=== PATIENT | female | born 1965 | race Caucasian/White ===

== ENCOUNTER 2020-03-01 11:10 | Inpatient (IN) | payer MEDICAID ==
[~2020-03-01] VITALS: Ht 149.9 cm; Wt 79.5 kg
[~2020-03-01 11:10] MED LIST: ALBU18HF2 IH; BAC10T PO; BACL10TA PO; CALC-3 PO; DIAZ5TAB PO; DIVA125T31 PO; LORA-512 PO; NORCO10T PO; NYST15OI14 TP; OMEP20CA4 PO; ONDA4TAB59 PO; ONDA4TAB6 PO
[2020-03-01] MEDS ORDERED: normal saline 1000ML IV soln IVB ONE (11:50)
[2020-03-01 12:27] LABS: BASOPHILS # (AUTO) 0.1 X10'3 (0-0.2); BASOPHILS % (AUTO) 0.7 % (0-1); HEMOGLOBIN 17.2 g/dl (12.0-16.0); MEAN PLATELET VOLUME 8.1 FL (7.4-10.4); NEUTROPHILS # (AUTO) 10.3 X10'3 (1.8-7.7)
[2020-03-01 12:28] LABS: EOSINOPHILS % (AUTO) 0.4 % (0-6); HEMATOCRIT 49.2 % (35.0-45.0); LYMPHOCYTES # (AUTO) 1.7 X10'3 (1.1-4.8); LYMPHOCYTES % (AUTO) 13.5 % (21-51); MEAN CORPUSCULAR HEMOGLOBIN 32.1 PG (27.0-31.0); MEAN CORPUSCULAR VOLUME 91.8 FL (78-98); MONOCYTES # (AUTO) 0.3 X10'3 (0-0.9); MONOCYTES % (AUTO) 2.6 % (2-12); NEUTROPHILS % (AUTO) 82.8 % (42-75); PLATELET COUNT 323 X10'3 (140-440); RED BLOOD COUNT 5.36 X10'6 (4.20-5.60); RED CELL DISTRIBUTION WIDTH 12.9 % (11.5-14.5); WHITE BLOOD COUNT 12.4 X10'3 (4.5-11.0)
[2020-03-01] MEDS: morphine 4 MG/ML inj SYRINge IV PRN ×4 (12:31→21:31)
[2020-03-01] MEDS ORDERED: ondansetron/PF 4mg/2ml inj IV ONE (12:40)
[2020-03-01 12:41] LABS: ALANINE AMINOTRANSFERASE 24 U/L (12-78); ALBUMIN 4.1 G/DL (3.4-5.0); ALBUMIN/GLOBULIN RATIO 0.9 (1.1-1.5); ALKALINE PHOSPHATASE 78 IU/L (46-116); ANION GAP 12 (8-16); ASPARTATE AMINO TRANSFERASE 12 U/L (10-37); BILIRUBIN,TOTAL 0.5 MG/DL (0.1-1.0); BLOOD UREA NITROGEN 10 MG/DL (7-18); BUN/CREATININE RATIO 10.8 (6.6-38.0); CALCIUM 9.9 MG/DL (8.5-10.1); CHLORIDE 98 MMOL/L (99-107); CREATININE 0.93 MG/DL (0.40-0.90); GLUCOSE 189 MG/DL (70-104); LIPASE 64 U/L (73-393); POTASSIUM 3.4 MMOL/L (3.5-5.1); SODIUM 139 MMOL/L (135-145); TOTAL CARBON DIOXIDE 29.1 MMOL/L (24-32); TOTAL PROTEIN 8.5 G/DL (6.4-8.2); eGFR 63 ML/MIN
[2020-03-01] MEDS ORDERED: cefepime 1GM/NS ADD-VANTAGE 100 ML IV STA (12:51)
[2020-03-01] MEDS ORDERED: dextrose 50%-water 50ml dispensing syringe IV PRN ×2 (13:20)
[2020-03-01] MEDS ORDERED: glucagon, human recombinant 1mg kit SUBCUT PRN (13:20)
[2020-03-01] MEDS ORDERED: albuterol 2.5 MG/3 ML nebule NEB PRN (13:20)
[2020-03-01] MEDS ORDERED: acetaminophen 650mg rectal suppository RC PRN (13:20)
[2020-03-01] MEDS ORDERED: magnesium 4gm in 100ml NS 100 ML IV PRN (13:20)
[2020-03-01] MEDS ORDERED: potassium Cl 20 mEq SR tablet PO PRN (13:20)
[2020-03-01] MEDS ORDERED: dextrose ORAL solution 15 GM/59 ML bottle PO PRN ×2 (13:20)
[2020-03-01] MEDS ORDERED: ipratropium/albuterol 3ml nebule NEB PRN (13:20)
[2020-03-01] MEDS ORDERED: MESSAGE TO PHARMACY PO ONE (13:20)
[2020-03-01] MEDS ORDERED: magnesium 2GM in 50ml NS 50 ML IV PRN (13:20)
[2020-03-01] MEDS ORDERED: potassium Cl 40MEQ/1/2NS 520ml 520 ML IV PRN ×2 (13:20)
[2020-03-01] MEDS ORDERED: mag hydrox/Alum hydrox/simeth 30ml oral suspension PO PRN (13:20)
[2020-03-01] MEDS ORDERED: METF-436 PO (13:31)
[2020-03-01] MEDS ORDERED: NYSPWD TOP (13:31)
[2020-03-01] MEDS ORDERED: DIAZ2TAB3 PO (13:31)
[2020-03-01] MEDS ORDERED: ASPI-1397 PO (13:31)
[2020-03-01] MEDS ORDERED: DIVA-36 PO (13:31)
[2020-03-01] MEDS ORDERED: DEXL30CA3 PO (13:31)
[2020-03-01] MEDS ORDERED: HYDR25TA4 PO (13:31)
[2020-03-01] MEDS ORDERED: HYDR-3973 PO (13:31)
[2020-03-01] MEDS ORDERED: BACL10TA7 PO (13:31)
[2020-03-01] MEDS ORDERED: POTA10TA19 PO (13:31)
[2020-03-01] MEDS ORDERED: BUPR-286 PO (13:32)
[2020-03-01] MEDS ORDERED: MYC15CR TOP (13:32)
[2020-03-01] MEDS ORDERED: ALB0.5UD NEB (13:32)
[2020-03-01] MEDS ORDERED: LORA10TA7 PO (13:32)
[2020-03-01 14:00] LABS: HEMOGLOBIN A1C 6.2 % (4.5-6.2)
[2020-03-01 14:11] LABS: CLARITY,URINE CLEAR (Clear); COLOR,URINE YELLOW (Yellow); GLUCOSE, URINE NEGATIVE (Neg); KETONES,URINE 15 mg/dl (Neg); LEUKOCYTE ESTERASE ,URINE NEGATIVE (Neg); NITRITES, URINE NEGATIVE (Neg); OCCULT BLOOD,URINE NEGATIVE (Neg); PH,URINE 8.5 (4.8-8.0); PROTEIN,URINE NEGATIVE (Neg); UROBILINOGEN,URINE 0.2 E.U/dL (0.2-1.0)
[2020-03-01] MEDS: normal saline 1000ml 1,000 ML IV SCH ×2 (14:19→23:20)
[2020-03-01 14:24] LABS: UA COLLECTION TYPE CLN CATCH MIDSTREAM
[2020-03-01] MEDS ORDERED: morphine 4 MG/ML inj SYRINge IV PRN ×2 (15:15→23:30)
--- NOTE | 2020-03-01 16:02 | NUR ---
Patient in room ED 12. I have received report fromKevin KEARNEY and had the opportunity to ask questions and awaiting patient
--- NOTE | 2020-03-01 16:36 | NUR ---
Patient in room [facility]. I have received PATIENT from er and had the opportunity to ask questions and assume patient care.
[2020-03-01] MEDS: cefepime 1GM/NS ADD-VANTAGE 100 ML IV SCH (16:42)
[2020-03-01 16:47] VITALS: BP 134/70
--- NOTE | 2020-03-01 17:05 | NUR ---
patient uncomfortable connected up to low interm suction 200mls cedeño colored drainage observed.VSS.
[2020-03-01] MEDS: morphine 2 MG/ML inj. syringe IV PRN (17:16)
--- NOTE | 2020-03-01 18:23 | NUR ---
patient appears more comfortable following MS 2mg and connecting NG, continues to drain cedeño coloured fluid. Report given to Maritza KEARNEY
--- NOTE | 2020-03-01 18:47 | NUR ---
Patient in room [facility]. I have received report from Narda KEARNEY and had the opportunity to ask questions and assume patient care.
[2020-03-01 19:37] VITALS: BP 112/87
[2020-03-01 19:46] VITALS: BP 112/87
[2020-03-01 19:48] LABS: PARTIAL THROMBOPLASTIN TIME 23 SECONDS (22-32)
[2020-03-01 20:00] VITALS: BP 112/87
[2020-03-01] MEDS: K and/or MAG REPLACEMENT MC SCH (20:00)
[2020-03-01] MEDS: enoxaparin 40mg/0.4ml syringe SQ SCH (20:00)
--- NOTE | 2020-03-01 20:00 | NUR ---
Problems reprioritized. Patient report given, questions answered & plan of care reviewed with Rodriguez KEARNEY in recovery for transfer to surgery.
[2020-03-01] MEDS: insulin glargine (Lantus) pen - multi-dose SQ SCH (20:23)
[2020-03-01] MEDS ORDERED: clindamycin phosphate 150mg/ml inj. ONE (21:08)
[2020-03-01] MEDS ORDERED: gentamicin 40 MG/1 ML inj ONE (21:08)
--- NOTE | 2020-03-01 21:15 | NUR ---
Pt left for surgery. checklist completed.
[2020-03-01] MEDS ORDERED: sevoflurane 250ml liquid IH ONE (22:17)
[2020-03-01] MEDS ORDERED: LIDOcaine 1%/PF 5ML 10 MG/ML VIAL ONE (22:17)
[2020-03-01] MEDS ORDERED: neostigmine methylsulfate 1 MG/ML 10ml vial ONE (22:17)
[2020-03-01] MEDS ORDERED: dexamethasone sod phosphate 10mg/ml inj ONE (22:17)
[2020-03-01] MEDS ORDERED: midazolam 2 mg/2 ml injection ONE (22:29)
[2020-03-01] MEDS ORDERED: fentaNYL /PF 50mcg/ml 5ml ampule ONE (22:29)
[2020-03-01] MEDS ORDERED: propofol inj 20 ML IV ONE (22:36)
[2020-03-01] MEDS ORDERED: rocuronium 10mg/ml inj IV ONE (22:36)
[2020-03-01] MEDS ORDERED: ondansetron/PF 4mg/2ml inj ONE (22:56)
[2020-03-01] MEDS ORDERED: meperidine/PF 25mg/ml syringe IV PRN ×3 (23:30)
[2020-03-01] MEDS ORDERED: ondansetron/PF 4mg/2ml inj IV PRN (23:30)
[2020-03-01] MEDS ORDERED: ringers solution, lacted 1,000 ML IV SCH (23:30)
[2020-03-01] MEDS ORDERED: morphine 2 MG/ML inj. syringe IV PRN (23:30)
[2020-03-01] MEDS ORDERED: acetaminophen 1,000mg/100ml IV 100 ML IV ONE (23:54)
[2020-03-02] VITALS (16 sets, daily range): BP systolic 112–158; BP diastolic 69–99
--- NOTE | 2020-03-02 00:08 | NUR ---
Received from OR via , accompanied by Anesthesiologist DR VELASCO and report given by Anesthesiolgist. AWAKENS TO VOICE. VITALS STABLE. DRESSING DI. ANTHONY PAIN. NG TO LIS. COTE WITH CLEAR URINE. ABD SOFT.
[2020-03-02] MEDS ORDERED: LIDOcaine 2% 10ml TOPICAL JELLY (Urojet) TP ONE (00:35)
--- NOTE | 2020-03-02 00:58 | NUR ---
Report called to receiving nurse. Transferred via [facility] . Special Issues communicated to receiving nurse.AWAKE AND ORIENTED. VITALS STABLE. DRESSING DI. STATES ONLY MIN DISCOMFORT. TO SURGICAL RM 344B AT TIS TIME.
[2020-03-02] MEDS: cefepime 1GM/NS ADD-VANTAGE 100 ML IV SCH ×4 (01:19→23:48)
[2020-03-02] MEDS: normal saline 1000ml 1,000 ML IV SCH ×3 (01:23→23:48)
[2020-03-02] MEDS: insulin Lispro (HumaLOG) vial - multi-dose SQ SCH ×3 (02:17→15:00)
[2020-03-02] MEDS: morphine 2 MG/ML inj. syringe IV PRN ×2 (02:25→07:07)
[2020-03-02 06:19] LABS: BASOPHILS % (AUTO) 0 % (0-1); EOSINOPHILS % (AUTO) 0 % (0-6); HEMATOCRIT 43.4 % (35.0-45.0); LYMPHOCYTES # (AUTO) 0.7 X10'3 (1.1-4.8); LYMPHOCYTES % (AUTO) 4.7 % (21-51); MEAN CORPUSCULAR HEMOGLOBIN 31.6 PG (27.0-31.0); MEAN CORPUSCULAR HGB CONC 34.5 g/dL (33.0-36.5); MEAN CORPUSCULAR VOLUME 91.8 FL (78-98); MEAN PLATELET VOLUME 8.5 FL (7.4-10.4); MONOCYTES % (AUTO) 6.9 % (2-12); NEUTROPHILS # (AUTO) 12.5 X10'3 (1.8-7.7); NEUTROPHILS % (AUTO) 88.4 % (42-75); PLATELET COUNT 283 X10'3 (140-440); RED BLOOD COUNT 4.73 X10'6 (4.20-5.60); RED CELL DISTRIBUTION WIDTH 13.3 % (11.5-14.5); WHITE BLOOD COUNT 14.1 X10'3 (4.5-11.0)
--- NOTE | 2020-03-02 06:21 | NUR ---
Problems reprioritized. Patient report given, questions answered & plan of care reviewed with Narda KEARNEY.
--- NOTE | 2020-03-02 06:28 | NUR ---
Patient in room [facility]. I have received report from tristen KEARNEY and had the opportunity to ask questions and assume patient care.
[2020-03-02 06:41] LABS: ALANINE AMINOTRANSFERASE 52 U/L (12-78); ALBUMIN/GLOBULIN RATIO 0.9 (1.1-1.5); ALKALINE PHOSPHATASE 60 IU/L (46-116); ANION GAP 11 (8-16); ASPARTATE AMINO TRANSFERASE 26 U/L (10-37); BILIRUBIN,TOTAL 0.5 MG/DL (0.1-1.0); BLOOD UREA NITROGEN 11 MG/DL (7-18); BUN/CREATININE RATIO 12.8 (6.6-38.0); CHLORIDE 108 MMOL/L (99-107); CREATININE 0.86 MG/DL (0.40-0.90); GLUCOSE 195 MG/DL (70-104); MAGNESIUM 1.3 MG/DL (1.5-2.4); POTASSIUM 3.5 MMOL/L (3.5-5.1); SODIUM 143 MMOL/L (135-145); TOTAL CARBON DIOXIDE 24.4 MMOL/L (24-32); TOTAL PROTEIN 6.5 G/DL (6.4-8.2); eGFR 69 ML/MIN
[2020-03-02] MEDS: K and/or MAG REPLACEMENT MC SCH ×2 (08:00→19:48)
--- NOTE | 2020-03-02 10:37 | NUR ---
patient very painful 10/10 givn morphine but not working dr foy paged for review.
[2020-03-02] MEDS ORDERED: CADD PCA waste documentation MC PRN (10:45)
[2020-03-02] MEDS ORDERED: naloxone 0.4 mg/ml inj IV PRN (10:45)
--- NOTE | 2020-03-02 10:50 | NUR ---
DR ahmadi paged with regards patients pain. CAdd ordered . dressing to be reinforced prn
--- NOTE | 2020-03-02 11:30 | NUR ---
Per Dr Lee ok to keep salazar catheter in place today. Re-evaluate tomorrow
[2020-03-02] MEDS: morphine/NS 5 mg/ml CADD 50 ML IV SCH ×7 (12:23→22:37)
--- NOTE | 2020-03-02 13:15 | NUR ---
PATIENT APPEARS MORE COMFORTABLE FOLLOWING CADD ADMINISTRATION.
--- NOTE | 2020-03-02 16:37 | NUR ---
NG draining cedeño colored drainage low cont suction. 200mls observed
--- NOTE | 2020-03-02 18:11 | NUR ---
DR foy paged with regards patients home meds
--- NOTE | 2020-03-02 18:12 | NUR ---
Problems reprioritized. Patient report given, questions answered & plan of care reviewed with paula KEARNEY.
--- NOTE | 2020-03-02 18:30 | NUR ---
Patient in room [facility]. I have received report from CAIO Laboy and had the opportunity to ask questions and assume patient care. Addendum: 03/02/20 at 1902 by Semaj Ash RN Amended: Links added.
[2020-03-02] MEDS: lactobacillus rhamnosus 10,000 MMU CELLS/CAPSULE PO SCH (19:49)
[2020-03-02] MEDS: enoxaparin 40mg/0.4ml syringe SQ SCH (19:52)
[2020-03-02] MEDS: insulin glargine (Lantus) pen - multi-dose SQ SCH (21:00)
[2020-03-03] MEDS: morphine/NS 5 mg/ml CADD 50 ML IV SCH ×12 (01:00→23:00)
--- NOTE | 2020-03-03 02:00 | NUR ---
Asked patient when next appointment with doctor who follows her for diabetes, she says it's early March does not remember exact date but thinks within a month.
--- NOTE | 2020-03-03 06:33 | NUR ---
Problems reprioritized. Patient report given, questions answered & plan of care reviewed with clifford BENSON. Addendum: 03/03/20 at 0633 by Semaj Ash RN Amended: Links added.
--- NOTE | 2020-03-03 06:36 | NUR ---
Patient in room [facility]. I have received report from CAIO Brown and had the opportunity to ask questions and assume patient care.
[2020-03-03 07:00] VITALS: BP 111/66
[2020-03-03] MEDS: K and/or MAG REPLACEMENT MC SCH ×2 (07:10→19:38)
[2020-03-03] MEDS: lactobacillus rhamnosus 10,000 MMU CELLS/CAPSULE PO SCH ×2 (07:13→19:42)
[2020-03-03] MEDS: cefepime 1GM/NS ADD-VANTAGE 100 ML IV SCH ×2 (07:26→15:48)
[2020-03-03 07:53] LABS: BASOPHILS % (AUTO) 0.3 % (0-1); EOSINOPHILS # (AUTO) 0.1 X10'3 (0-0.9); EOSINOPHILS % (AUTO) 1.6 % (0-6); HEMATOCRIT 36.2 % (35.0-45.0); HEMOGLOBIN 12.5 g/dl (12.0-16.0); LYMPHOCYTES # (AUTO) 1.6 X10'3 (1.1-4.8); LYMPHOCYTES % (AUTO) 29.7 % (21-51); MEAN CORPUSCULAR HEMOGLOBIN 32.1 PG (27.0-31.0); MEAN CORPUSCULAR HGB CONC 34.6 g/dL (33.0-36.5); MEAN CORPUSCULAR VOLUME 92.6 FL (78-98); MEAN PLATELET VOLUME 8.6 FL (7.4-10.4); MONOCYTES # (AUTO) 0.6 X10'3 (0-0.9); MONOCYTES % (AUTO) 11.5 % (2-12); NEUTROPHILS # (AUTO) 3.1 X10'3 (1.8-7.7); NEUTROPHILS % (AUTO) 56.9 % (42-75); PLATELET COUNT 224 X10'3 (140-440); RED BLOOD COUNT 3.91 X10'6 (4.20-5.60); RED CELL DISTRIBUTION WIDTH 13.2 % (11.5-14.5); WHITE BLOOD COUNT 5.5 X10'3 (4.5-11.0)
[2020-03-03 08:21] LABS: ALANINE AMINOTRANSFERASE 27 U/L (12-78); ALBUMIN 2.5 G/DL (3.4-5.0); ALBUMIN/GLOBULIN RATIO 0.7 (1.1-1.5); ALKALINE PHOSPHATASE 46 IU/L (46-116); ANION GAP 10 (8-16); ASPARTATE AMINO TRANSFERASE 15 U/L (10-37); BILIRUBIN,TOTAL 0.5 MG/DL (0.1-1.0); BLOOD UREA NITROGEN 12 MG/DL (7-18); BUN/CREATININE RATIO 17.6 (6.6-38.0); CALCIUM 7.9 MG/DL (8.5-10.1); CHLORIDE 108 MMOL/L (99-107); CREATININE 0.68 MG/DL (0.40-0.90); GLUCOSE 161 MG/DL (70-104); MAGNESIUM 2.8 MG/DL (1.5-2.4); POTASSIUM 3.5 MMOL/L (3.5-5.1); SODIUM 144 MMOL/L (135-145); TOTAL CARBON DIOXIDE 26.3 MMOL/L (24-32); TOTAL PROTEIN 6.2 G/DL (6.4-8.2); eGFR > 90 ML/MIN
[2020-03-03] MEDS: insulin Lispro (HumaLOG) vial - multi-dose SQ SCH ×3 (09:21→20:54)
--- NOTE | 2020-03-03 10:21 | NUR ---
Dr Lee rounded on pt and stated pt to have NGT dc'd and start PO popsicles and ice chips. CAIO Marie aware.
[2020-03-03 11:00] VITALS: BP 117/69
[2020-03-03] MEDS: normal saline 1000ml 1,000 ML IV SCH (13:53)
[2020-03-03 18:00] VITALS: BP 146/77
--- NOTE | 2020-03-03 18:31 | NUR ---
Patient in room [facility]. I have received report from KELLEY KEARNEY and had the opportunity to ask questions and assume patient care.
--- NOTE | 2020-03-03 18:44 | NUR ---
Problems reprioritized. Patient report given, questions answered & plan of care reviewed with CAIO Starks.
[2020-03-03] MEDS: ondansetron/PF 4mg/2ml inj IV PRN (18:50)
[2020-03-03] MEDS: enoxaparin 40mg/0.4ml syringe SQ SCH (19:43)
[2020-03-03] MEDS: insulin glargine (Lantus) pen - multi-dose SQ SCH (21:00)
[2020-03-03] MEDS ORDERED: metoclopramide 5 mg/ml inj IV PRN (22:20)
[2020-03-03] MEDS: LORazepam 0.5 MG tablet PO PRN (22:44)
[2020-03-04] VITALS: BP 145/86
[2020-03-04] MEDS: cefepime 1GM/NS ADD-VANTAGE 100 ML IV SCH ×4 (00:18→23:36)
[2020-03-04] MEDS: normal saline 1000ml 1,000 ML IV SCH ×3 (00:25→22:17)
[2020-03-04] MEDS: morphine/NS 5 mg/ml CADD 50 ML IV SCH ×12 (01:00→23:00)
--- NOTE | 2020-03-04 06:05 | NUR ---
Patient in room [facility]. I have received report from CAIO Starks and had the opportunity to ask questions and assume patient care.
[2020-03-04 06:30] VITALS: BP 124/73
--- NOTE | 2020-03-04 06:32 | NUR ---
Problems reprioritized. Patient report given, questions answered & plan of care reviewed with ANTHONY RN.
[2020-03-04 06:43] LABS: BASOPHILS % (AUTO) 0.1 % (0-1); EOSINOPHILS # (AUTO) 0.1 X10'3 (0-0.9); EOSINOPHILS % (AUTO) 3.6 % (0-6); HEMATOCRIT 31.8 % (35.0-45.0); HEMOGLOBIN 11.2 g/dl (12.0-16.0); LYMPHOCYTES # (AUTO) 1.8 X10'3 (1.1-4.8); MEAN CORPUSCULAR HEMOGLOBIN 32.6 PG (27.0-31.0); MEAN CORPUSCULAR HGB CONC 35.1 g/dL (33.0-36.5); MEAN CORPUSCULAR VOLUME 92.9 FL (78-98); MEAN PLATELET VOLUME 8.3 FL (7.4-10.4); MONOCYTES # (AUTO) 0.5 X10'3 (0-0.9); MONOCYTES % (AUTO) 13.3 % (2-12); NEUTROPHILS # (AUTO) 1.5 X10'3 (1.8-7.7); PLATELET COUNT 191 X10'3 (140-440); RED BLOOD COUNT 3.43 X10'6 (4.20-5.60); RED CELL DISTRIBUTION WIDTH 13.2 % (11.5-14.5); WHITE BLOOD COUNT 3.9 X10'3 (4.5-11.0)
[2020-03-04 07:14] LABS: ALANINE AMINOTRANSFERASE 21 U/L (12-78); ALBUMIN 2.3 G/DL (3.4-5.0); ALBUMIN/GLOBULIN RATIO 0.6 (1.1-1.5); ALKALINE PHOSPHATASE 43 IU/L (46-116); ANION GAP 9 (8-16); ASPARTATE AMINO TRANSFERASE 11 U/L (10-37); BILIRUBIN,TOTAL 0.4 MG/DL (0.1-1.0); BLOOD UREA NITROGEN 9 MG/DL (7-18); CALCIUM 7.8 MG/DL (8.5-10.1); CHLORIDE 109 MMOL/L (99-107); GLUCOSE 143 MG/DL (70-104); POTASSIUM 3.3 MMOL/L (3.5-5.1); SODIUM 145 MMOL/L (135-145); TOTAL CARBON DIOXIDE 26.6 MMOL/L (24-32); TOTAL PROTEIN 5.9 G/DL (6.4-8.2); eGFR > 90 ML/MIN
[2020-03-04] MEDS: K and/or MAG REPLACEMENT MC SCH ×2 (07:28→19:08)
[2020-03-04] MEDS: lactobacillus rhamnosus 10,000 MMU CELLS/CAPSULE PO SCH ×2 (08:24→20:02)
[2020-03-04] MEDS: magnesium hydroxide 30ml (MOM) UD suspension PO SCH ×2 (08:24→20:01)
[2020-03-04] MEDS: potassium Cl 20 mEq SR tablet PO PRN ×2 (08:24→12:21)
[2020-03-04] MEDS: insulin Lispro (HumaLOG) vial - multi-dose SQ SCH ×3 (08:38→20:11)
[2020-03-04 11:00] VITALS: BP 165/67
[2020-03-04] MEDS: LORazepam 0.5 MG tablet PO PRN ×2 (14:32→20:07)
[2020-03-04] MEDS ORDERED: potassium Cl 20 mEq SR tablet PO PRN (16:35)
[2020-03-04] MEDS ORDERED: magnesium 4gm in 100ml NS 100 ML IV PRN (16:35)
[2020-03-04] MEDS ORDERED: magnesium 2GM in 50ml NS 50 ML IV PRN (16:35)
[2020-03-04] MEDS ORDERED: magnesium Cl slow-release 64mg tablet PO PRN (16:35)
[2020-03-04] MEDS ORDERED: potassium Cl 40MEQ/1/2NS 520ml 520 ML IV PRN (16:35)
[2020-03-04 18:00] VITALS: BP 108/64
[2020-03-04] MEDS ORDERED: mag hydrox/Alum hydrox/simeth 30ml oral suspension PO PRN (18:10)
--- NOTE | 2020-03-04 18:10 | NUR ---
Problems reprioritized. Patient report given, questions answered & plan of care reviewed with CAIO Starks.
--- NOTE | 2020-03-04 18:45 | NUR ---
Patient in room [facility]. I have received report from ANTHONY KEARNEY and had the opportunity to ask questions and assume patient care.
[2020-03-04] MEDS ORDERED: enoxaparin 40mg/0.4ml syringe SUBCUT SCH (20:00)
[2020-03-04] MEDS: enoxaparin 40mg/0.4ml syringe SQ SCH (20:02)
[2020-03-04] MEDS: insulin glargine (Lantus) pen - multi-dose SQ SCH (21:00)
[2020-03-04] MEDS: ondansetron/PF 4mg/2ml inj IV PRN (22:17)
[2020-03-05] VITALS: BP 158/78
[2020-03-05] MEDS: morphine/NS 5 mg/ml CADD 50 ML IV SCH ×6 (01:00→11:00)
[2020-03-05] MEDS: LORazepam 0.5 MG tablet PO PRN ×2 (01:06→20:21)
[2020-03-05] MEDS: insulin Lispro (HumaLOG) vial - multi-dose SQ SCH ×2 (02:49→14:16)
--- NOTE | 2020-03-05 06:05 | NUR ---
Patient in room [facility]. I have received report from CAIO Starks and had the opportunity to ask questions and assume patient care.
--- NOTE | 2020-03-05 06:08 | NUR ---
Problems reprioritized. Patient report given, questions answered & plan of care reviewed with ANTHONY RN.
[2020-03-05 06:13] LABS: BASOPHILS % (AUTO) 0.2 % (0-1); EOSINOPHILS # (AUTO) 0.1 X10'3 (0-0.9); EOSINOPHILS % (AUTO) 1.5 % (0-6); HEMATOCRIT 33.7 % (35.0-45.0); HEMOGLOBIN 11.5 g/dl (12.0-16.0); LYMPHOCYTES # (AUTO) 1.7 X10'3 (1.1-4.8); LYMPHOCYTES % (AUTO) 29.2 % (21-51); MEAN CORPUSCULAR HEMOGLOBIN 31.5 PG (27.0-31.0); MEAN CORPUSCULAR HGB CONC 34.1 g/dL (33.0-36.5); MEAN CORPUSCULAR VOLUME 92.2 FL (78-98); MEAN PLATELET VOLUME 8.2 FL (7.4-10.4); MONOCYTES # (AUTO) 0.6 X10'3 (0-0.9); MONOCYTES % (AUTO) 11.2 % (2-12); NEUTROPHILS # (AUTO) 3.4 X10'3 (1.8-7.7); NEUTROPHILS % (AUTO) 57.9 % (42-75); PLATELET COUNT 253 X10'3 (140-440); RED BLOOD COUNT 3.65 X10'6 (4.20-5.60); RED CELL DISTRIBUTION WIDTH 12.8 % (11.5-14.5); WHITE BLOOD COUNT 5.8 X10'3 (4.5-11.0)
[2020-03-05 06:30] VITALS: BP 131/86
[2020-03-05 06:41] LABS: ALANINE AMINOTRANSFERASE 28 U/L (12-78); ALBUMIN 2.5 G/DL (3.4-5.0); ALBUMIN/GLOBULIN RATIO 0.7 (1.1-1.5); ALKALINE PHOSPHATASE 56 IU/L (46-116); ANION GAP 7 (8-16); ASPARTATE AMINO TRANSFERASE 21 U/L (10-37); BILIRUBIN,TOTAL 0.3 MG/DL (0.1-1.0); BLOOD UREA NITROGEN 12 MG/DL (7-18); BUN/CREATININE RATIO 17.9 (6.6-38.0); CALCIUM 8.2 MG/DL (8.5-10.1); CHLORIDE 111 MMOL/L (99-107); CREATININE 0.67 MG/DL (0.40-0.90); GLUCOSE 111 MG/DL (70-104); MAGNESIUM 2.1 MG/DL (1.5-2.4); POTASSIUM 3.5 MMOL/L (3.5-5.1); SODIUM 148 MMOL/L (135-145); TOTAL CARBON DIOXIDE 29.6 MMOL/L (24-32); TOTAL PROTEIN 6.3 G/DL (6.4-8.2); eGFR > 90 ML/MIN
[2020-03-05] MEDS: normal saline 1000ml 1,000 ML IV SCH ×2 (07:20→10:23)
[2020-03-05] MEDS: K and/or MAG REPLACEMENT MC SCH ×2 (08:00→20:00)
[2020-03-05] MEDS: magnesium hydroxide 30ml (MOM) UD suspension PO SCH ×2 (10:12→20:00)
[2020-03-05] MEDS: pantoprazole 40mg Tablet.DR PO SCH (10:22)
[2020-03-05] MEDS: cefepime 1GM/NS ADD-VANTAGE 100 ML IV SCH ×2 (10:22→16:33)
[2020-03-05] MEDS: lactobacillus rhamnosus 10,000 MMU CELLS/CAPSULE PO SCH ×2 (10:22→20:21)
[2020-03-05 11:00] VITALS: BP 141/78
[2020-03-05] MEDS: HYDROcodone/acetaminophen 10/325mg tab PO PRN ×2 (12:27→16:34)
[2020-03-05] MEDS: morphine 2 MG/ML inj. syringe IV PRN ×2 (14:30→20:21)
--- NOTE | 2020-03-05 18:20 | NUR ---
Problems reprioritized. Patient report given, questions answered & plan of care reviewed with CAIO Starks.
--- NOTE | 2020-03-05 18:22 | NUR ---
Patient in room [facility]. I have received report from ANTHONY KEARNEY and had the opportunity to ask questions and assume patient care.
[2020-03-05 19:00] VITALS: BP 130/70
[2020-03-05] MEDS: furosemide 20 MG/2 ML vial IV SCH (20:21)
[2020-03-05] MEDS: enoxaparin 40mg/0.4ml syringe SQ SCH (20:22)
[2020-03-05] MEDS: insulin glargine (Lantus) pen - multi-dose SQ SCH (21:35)
[2020-03-05] MEDS: diazepam 2mg tablet PO PRN (22:25)
[2020-03-06] VITALS: BP 137/78
[2020-03-06] MEDS: cefepime 1GM/NS ADD-VANTAGE 100 ML IV SCH ×3 (00:51→16:55)
[2020-03-06] MEDS: HYDROcodone/acetaminophen 10/325mg tab PO PRN ×4 (00:52→23:16)
[2020-03-06] MEDS: morphine 2 MG/ML inj. syringe IV PRN ×4 (02:34→21:03)
--- NOTE | 2020-03-06 06:15 | NUR ---
Patient in room [facility]. I have received report from CAIO Starks and had the opportunity to ask questions and assume patient care.
--- NOTE | 2020-03-06 06:17 | NUR ---
Problems reprioritized. Patient report given, questions answered & plan of care reviewed with ANTHONY RN.
[2020-03-06 06:30] VITALS: BP 138/77
[2020-03-06] MEDS ORDERED: magnesium hydroxide 30ml (MOM) UD suspension PO PRN (07:10)
[2020-03-06 07:14] LABS: BASOPHILS % (AUTO) 0.2 % (0-1); EOSINOPHILS # (AUTO) 0.2 X10'3 (0-0.9); EOSINOPHILS % (AUTO) 2.7 % (0-6); HEMATOCRIT 32.3 % (35.0-45.0); HEMOGLOBIN 11.3 g/dl (12.0-16.0); LYMPHOCYTES # (AUTO) 2.6 X10'3 (1.1-4.8); LYMPHOCYTES % (AUTO) 31.9 % (21-51); MEAN CORPUSCULAR HEMOGLOBIN 32.4 PG (27.0-31.0); MEAN CORPUSCULAR VOLUME 92.6 FL (78-98); MEAN PLATELET VOLUME 7.9 FL (7.4-10.4); MONOCYTES # (AUTO) 0.7 X10'3 (0-0.9); NEUTROPHILS # (AUTO) 4.6 X10'3 (1.8-7.7); NEUTROPHILS % (AUTO) 56.2 % (42-75); PLATELET COUNT 247 X10'3 (140-440); RED BLOOD COUNT 3.48 X10'6 (4.20-5.60); RED CELL DISTRIBUTION WIDTH 12.9 % (11.5-14.5); WHITE BLOOD COUNT 8.1 X10'3 (4.5-11.0)
[2020-03-06 07:27] LABS: ALANINE AMINOTRANSFERASE 26 U/L (12-78); ALBUMIN 2.3 G/DL (3.4-5.0); ALBUMIN/GLOBULIN RATIO 0.7 (1.1-1.5); ALKALINE PHOSPHATASE 59 IU/L (46-116); ANION GAP 9 (8-16); ASPARTATE AMINO TRANSFERASE 20 U/L (10-37); BILIRUBIN,TOTAL 0.4 MG/DL (0.1-1.0); BLOOD UREA NITROGEN 7 MG/DL (7-18); BUN/CREATININE RATIO 10.8 (6.6-38.0); CALCIUM 8.2 MG/DL (8.5-10.1); CHLORIDE 106 MMOL/L (99-107); CREATININE 0.65 MG/DL (0.40-0.90); GLUCOSE 111 MG/DL (70-104); MAGNESIUM 1.8 MG/DL (1.5-2.4); SODIUM 144 MMOL/L (135-145); TOTAL CARBON DIOXIDE 28.9 MMOL/L (24-32); TOTAL PROTEIN 5.7 G/DL (6.4-8.2); eGFR > 90 ML/MIN
[2020-03-06] MEDS: potassium Cl 20 mEq SR tablet PO PRN ×3 (08:25→16:56)
[2020-03-06] MEDS: lactobacillus rhamnosus 10,000 MMU CELLS/CAPSULE PO SCH ×2 (08:25→19:41)
[2020-03-06] MEDS: pantoprazole 40mg Tablet.DR PO SCH (08:25)
[2020-03-06] MEDS: furosemide 20 MG/2 ML vial IV SCH (08:25)
[2020-03-06] MEDS: buPROPion SR 150mg tablet PO SCH (08:25)
[2020-03-06] MEDS: HYDROchlorothiazide 25mg tablet PO SCH (08:25)
[2020-03-06] MEDS: baclofen 10mg tablet PO SCH ×3 (08:26→20:48)
[2020-03-06] MEDS: divalproex 250mg tablet, delayed-release PO SCH ×2 (08:26→19:42)
[2020-03-06] MEDS: aspirin 81mg tablet.DR PO SCH (08:26)
[2020-03-06] MEDS: K and/or MAG REPLACEMENT MC SCH ×2 (08:26→19:37)
[2020-03-06] MEDS: insulin Lispro (HumaLOG) vial - multi-dose SQ SCH ×3 (08:38→19:18)
[2020-03-06 11:00] VITALS: BP 121/71
--- NOTE | 2020-03-06 14:38 | NUR ---
Initial: Pt admit DX SBO and peritonitis s/p ex lap w/ lysis of adhesions and small bowel resection per EMR. Hx T2DM A1C less than 7 and advanced to carb controlled diet today from prior full liquids post-op. PO 75-100% avg full liquid meals w/ LBM 03/05. Noted abdomen pain w/ nausea today. Will monitor for additional protein/ONS needs pending further PO hx post-op. Rec: 1. continue carb controlled diet 2. monitor for ONS needs 3. routine bowel care 4. weekly wts Addendum: 03/06/20 at [address] Amended: Links added.
--- NOTE | 2020-03-06 18:20 | NUR ---
Problems reprioritized. Patient report given, questions answered & plan of care reviewed with CAIO Salas.
--- NOTE | 2020-03-06 18:46 | NUR ---
I have received report from Jennifer KEARNEY and had the opportunity to ask questions and assume patient care.
[2020-03-06] MEDS: enoxaparin 40mg/0.4ml syringe SQ SCH (19:43)
[2020-03-06 20:00] VITALS: BP 143/91
[2020-03-06] MEDS: insulin glargine (Lantus) pen - multi-dose SQ SCH (21:20)
[2020-03-07] VITALS: BP 119/69
[2020-03-07] MEDS: cefepime 1GM/NS ADD-VANTAGE 100 ML IV SCH ×4 (00:29→23:44)
[2020-03-07] MEDS: diazepam 2mg tablet PO PRN (00:29)
[2020-03-07] MEDS: morphine 2 MG/ML inj. syringe IV PRN ×4 (02:26→23:45)
[2020-03-07] MEDS: HYDROcodone/acetaminophen 10/325mg tab PO PRN ×4 (04:33→22:13)
--- NOTE | 2020-03-07 06:23 | NUR ---
Problems reprioritized. Patient report given, questions answered & plan of care reviewed with Maday KEARNEY.
[2020-03-07 06:59] LABS: MAGNESIUM 1.7 MG/DL (1.5-2.4); POTASSIUM 3.6 MMOL/L (3.5-5.1)
[2020-03-07 07:00] VITALS: BP 131/80
[2020-03-07] MEDS: K and/or MAG REPLACEMENT MC SCH ×2 (08:00→19:21)
[2020-03-07] MEDS: buPROPion SR 150mg tablet PO SCH (08:14)
[2020-03-07] MEDS: baclofen 10mg tablet PO SCH ×3 (08:14→22:12)
[2020-03-07] MEDS: divalproex 250mg tablet, delayed-release PO SCH ×2 (08:14→19:22)
[2020-03-07] MEDS: HYDROchlorothiazide 25mg tablet PO SCH (08:14)
[2020-03-07] MEDS: aspirin 81mg tablet.DR PO SCH (08:14)
[2020-03-07] MEDS: pantoprazole 40mg Tablet.DR PO SCH (08:14)
[2020-03-07] MEDS: lactobacillus rhamnosus 10,000 MMU CELLS/CAPSULE PO SCH ×2 (08:14→19:21)
[2020-03-07] MEDS: insulin Lispro (HumaLOG) vial - multi-dose SQ SCH ×2 (09:03→19:32)
[2020-03-07] MEDS ORDERED: LACT1CAP26 PO (11:00)
[2020-03-07 13:15] VITALS: BP 123/90
--- NOTE | 2020-03-07 15:43 | NUR ---
Patient stating that he does not want to be discharged now and would be willing to do what is necessary. Spoke with hospitalist who suggested I call [facility] and let him know. He said this patient is not a good candidate for surgery and nothing is changing. Will notify hospitalist and discharge patient to the [facility]. Addendum: 03/07/20 at 1624 by Maday Osorio RN please disregard this message. wrong patient.
--- NOTE | 2020-03-07 17:38 | NUR ---
Attempted to call Dr. Staples regarding dressing and incision packing, also pain medication before this patient discharges. No answer.
--- NOTE | 2020-03-07 18:25 | NUR ---
Problems reprioritized. Patient report given, questions answered & plan of care reviewed with CAIO Salas.
[2020-03-07] MEDS: enoxaparin 40mg/0.4ml syringe SQ SCH (19:23)
[2020-03-07 20:00] VITALS: BP 128/90
[2020-03-07] MEDS: insulin glargine (Lantus) pen - multi-dose SQ SCH (22:15)
--- NOTE | 2020-03-07 22:52 | NUR ---
I have received report from Maday KEARNEY and had the opportunity to ask questions and assume patient care.
[2020-03-08] VITALS: BP 124/90
[2020-03-08] MEDS: HYDROcodone/acetaminophen 10/325mg tab PO PRN ×2 (04:23→08:25)
--- NOTE | 2020-03-08 06:46 | NUR ---
Problems reprioritized. Patient report given, questions answered & plan of care reviewed with Narda KEARNEY.
[2020-03-08 07:00] VITALS: BP 107/67
[2020-03-08] MEDS: aspirin 81mg tablet.DR PO SCH (08:21)
[2020-03-08] MEDS: baclofen 10mg tablet PO SCH (08:21)
[2020-03-08] MEDS: HYDROchlorothiazide 25mg tablet PO SCH (08:22)
[2020-03-08] MEDS: lactobacillus rhamnosus 10,000 MMU CELLS/CAPSULE PO SCH (08:22)
[2020-03-08] MEDS: pantoprazole 40mg Tablet.DR PO SCH (08:22)
[2020-03-08] MEDS: buPROPion SR 150mg tablet PO SCH (08:22)
[2020-03-08] MEDS: divalproex 250mg tablet, delayed-release PO SCH (08:22)
[2020-03-08] MEDS: insulin Lispro (HumaLOG) vial - multi-dose SQ SCH (09:56)
[2020-03-08] MEDS ORDERED: HYDR-4383 PO (10:05)
--- NOTE | 2020-03-08 12:00 | NUR ---
PATIENT WAS PREPARED FOR dc IN PM OF 03/07/20. dISCHARGE INSTRUCTIONS REINFORCED WITH PATIENT.Wound slightly reddened around kaylee mid portion. cleaned and reinforced with steristrips. Dressing re-applied. Seen by Charge Nurse Brenda. patient is to follow up with DR Staples in office. All other DC instructions given to patient. patient DC home via private car with friend 1150hrs.In stable condition.
== END 2020-03-08 11:49 | disposition home or self-care (01) | DRG 224 ==
LOC: ER 11:10 → ED HOLD 13:19 → SUR 3N 16:26
PROVIDERS: ADMIT Family Medicine; ATTEND Family Medicine
PROC: 0DN80ZZ Release Small Intestine, Open Approach (ICD-10-PCS; principal; 2020-03-01 22:17)
DX: K56.50 Intestinal adhesions [bands], unspecified as to partial versus complete obstruction (principal); E07.9 Disorder of thyroid, unspecified; E11.9 Type 2 diabetes mellitus without complications; F31.9 Bipolar disorder, unspecified; G89.29 Other chronic pain; I10 Essential (primary) hypertension; J44.9 Chronic obstructive pulmonary disease, unspecified; K65.9 Peritonitis, unspecified; M79.7 Fibromyalgia; Z80.49 Family history of malignant neoplasm of other genital organs; Z82.3 Family history of stroke; Z82.49 Family history of ischemic heart disease and other diseases of the circulatory system; Z83.3 Family history of diabetes mellitus; Z90.710 Acquired absence of both cervix and uterus; Z20.822 Contact with and (suspected) exposure to COVID-19; Z88.0 Allergy status to penicillin; Z88.5 Allergy status to narcotic agent; Z88.8 Allergy status to other drugs, medicaments and biological substances
CPT/HCPCS: 36415; 71045; 74176; 80053; 81003; 82948; 83036; 83605; 83690; 83735; 84132; 84145; 85025; 85610; 85730; 87040; 87081; 87635; 93005; 93971; 94760; 96365; 97110; 97116; 97162; 97530; 99285; A4215; A4618; A6253; A6407; A7000; C1758; G0378; J0131; J0692; J1100; J1580; J1650; J1815; J1940; J2175; J2250; J2270; J2405; J2704; J2710; J2765; J3010; J3475; J3480; J3490; J7030; J7120

== ENCOUNTER 2020-06-16 15:51 | Emergency (ER) | payer MEDICAID ==
[~2020-06-16] VITALS: Ht 149.9 cm; Wt 79.5 kg
[~2020-06-16 15:51] MED LIST changes: +ALB0.5UD NEB; -ALBU18HF2 IH; +ASPI-1397 PO; -BAC10T PO; -BACL10TA PO; +BACL10TA7 PO; +BUPR-317 PO; -CALC-3 PO; +DEXL30CA3 PO; +DIAZ2TAB3 PO; -DIAZ5TAB PO; +DIVA-36 PO; -DIVA125T31 PO; +HYDR-3973 PO; +HYDR-4383 PO; +HYDR25TA4 PO; +LACT1CAP26 PO; -LORA-512 PO; +LORA10TA7 PO; +METF-436 PO; +MYC15CR TOP; -NORCO10T PO; +NYSPWD TOP; -NYST15OI14 TP; -OMEP20CA4 PO; -ONDA4TAB59 PO; -ONDA4TAB6 PO; +POTA10TA19 PO
[2020-06-16 17:10] LABS: BASOPHILS # (AUTO) 0.1 X10'3 (0-0.2); BASOPHILS % (AUTO) 1.1 % (0-1); EOSINOPHILS # (AUTO) 0.6 X10'3 (0-0.9); EOSINOPHILS % (AUTO) 6.2 % (0-6); HEMATOCRIT 44.1 % (35.0-45.0); HEMOGLOBIN 15.1 g/dl (12.0-16.0); LYMPHOCYTES # (AUTO) 3.4 X10'3 (1.1-4.8); LYMPHOCYTES % (AUTO) 34.2 % (21-51); MEAN CORPUSCULAR HEMOGLOBIN 30.1 PG (27.0-31.0); MEAN CORPUSCULAR HGB CONC 34.2 g/dL (33.0-36.5); MEAN CORPUSCULAR VOLUME 87.9 FL (78-98); MEAN PLATELET VOLUME 8.6 FL (7.4-10.4); MONOCYTES # (AUTO) 0.4 X10'3 (0-0.9); MONOCYTES % (AUTO) 4.4 % (2-12); NEUTROPHILS # (AUTO) 5.4 X10'3 (1.8-7.7); NEUTROPHILS % (AUTO) 54.1 % (42-75); PLATELET COUNT 324 X10'3 (140-440); RED BLOOD COUNT 5.02 X10'6 (4.20-5.60); RED CELL DISTRIBUTION WIDTH 13.4 % (11.5-14.5)
[2020-06-16 17:32] LABS: ALANINE AMINOTRANSFERASE 25 U/L (12-78); ALBUMIN 3.8 G/DL (3.4-5.0); ALBUMIN/GLOBULIN RATIO 0.8 (1.1-1.5); ALKALINE PHOSPHATASE 92 IU/L (46-116); ANION GAP 13 (8-16); ASPARTATE AMINO TRANSFERASE 14 U/L (10-37); BILIRUBIN,TOTAL 0.3 MG/DL (0.1-1.0); BLOOD UREA NITROGEN 13 MG/DL (7-18); BUN/CREATININE RATIO 14.8 (6.6-38.0); CALCIUM 9.4 MG/DL (8.5-10.1); CHLORIDE 101 MMOL/L (99-107); CREATININE 0.88 MG/DL (0.40-0.90); GLUCOSE 118 MG/DL (70-104); POTASSIUM 3.7 MMOL/L (3.5-5.1); SODIUM 141 MMOL/L (135-145); TOTAL CARBON DIOXIDE 27.2 MMOL/L (24-32); TOTAL PROTEIN 8.4 G/DL (6.4-8.2); eGFR 67 ML/MIN
[2020-06-16] MEDS ORDERED: ondansetron/PF 4mg/2ml inj IV ONE (18:25)
[2020-06-16] MEDS ORDERED: normal saline 1000ml 1,000 ML IV ONE (18:25)
[2020-06-16] MEDS ORDERED: morphine 4 MG/ML inj SYRINge IV ONE ×2 (18:25→20:25)
[2020-06-16] MEDS ORDERED: iohexol 300mg/ml 100ml inj. ONE (18:29)
[2020-06-16] MEDS ORDERED: MESSAGE TO NURSING PO ONE (19:00)
[2020-06-16 19:58] LABS: CLARITY,URINE CLEAR (Clear); COLOR,URINE YELLOW (Yellow); GLUCOSE, URINE NEGATIVE (Neg); KETONES,URINE NEGATIVE (Neg); LEUKOCYTE ESTERASE ,URINE NEGATIVE (Neg); NITRITES, URINE NEGATIVE (Neg); OCCULT BLOOD,URINE NEGATIVE (Neg); PH,URINE 5.5 (4.8-8.0); PROTEIN,URINE NEGATIVE (Neg); UROBILINOGEN,URINE 0.2 E.U/dL (0.2-1.0)
[2020-06-16 19:59] LABS: URINE HCG NEGATIVE (NEG)
[2020-06-16 20:03] LABS: UA COLLECTION TYPE CLN CATCH MIDSTREAM
[2020-06-16 20:28] VITALS: BP 139/82
[2020-06-16] MEDS ORDERED: ONDA4TAB6 PO (20:33)
[2020-06-16] MEDS ORDERED: HYDR-3965 PO (20:33)
== END 2020-06-16 20:55 | disposition home or self-care (01) ==
LOC: ER 15:53
DX: K52.9 Noninfective gastroenteritis and colitis, unspecified (principal); R11.0 Nausea; R19.7 Diarrhea, unspecified; R10.84 Generalized abdominal pain; G43.909 Migraine, unspecified, not intractable, without status migrainosus; I10 Essential (primary) hypertension; J44.9 Chronic obstructive pulmonary disease, unspecified; E11.9 Type 2 diabetes mellitus without complications; G89.29 Other chronic pain; F31.9 Bipolar disorder, unspecified; Z85.9 Personal history of malignant neoplasm, unspecified; Z90.49 Acquired absence of other specified parts of digestive tract; Z90.710 Acquired absence of both cervix and uterus; Z88.1 Allergy status to other antibiotic agents; Z88.0 Allergy status to penicillin; Z88.5 Allergy status to narcotic agent; Z88.8 Allergy status to other drugs, medicaments and biological substances; Z79.82 Long term (current) use of aspirin; Z79.899 Other long term (current) drug therapy
CPT/HCPCS: 36415; 74177; 80053; 81003; 81025; 85025; 96361; 96374; 96375; 96376; 99285; J2270; J2405; J7030; Q9967

== ENCOUNTER 2020-09-14 17:45 | Emergency (ER) | payer MEDICAID ==
[~2020-09-14] VITALS: Ht 149.9 cm; Wt 79.5 kg
[~2020-09-14 17:45] MED LIST changes: +ONDA4TAB6 PO
[2020-09-14] MEDS ORDERED: HYDROcodone/acetaminophen 5mg/325mg tablet PO ONE ×2 (19:20→21:35)
--- NOTE | 2020-09-14 19:43 | NUR ---
VASCULAR PAGED AT [phone]
[2020-09-14 19:49] LABS: BASOPHILS # (AUTO) 0.1 X10'3 (0-0.2); BASOPHILS % (AUTO) 0.8 % (0-1); EOSINOPHILS # (AUTO) 0.2 X10'3 (0-0.9); HEMATOCRIT 42.5 % (35.0-45.0); HEMOGLOBIN 14.7 g/dl (12.0-16.0); LYMPHOCYTES # (AUTO) 3.7 X10'3 (1.1-4.8); LYMPHOCYTES % (AUTO) 33.1 % (21-51); MEAN CORPUSCULAR HEMOGLOBIN 30.8 PG (27.0-31.0); MEAN CORPUSCULAR HGB CONC 34.6 g/dL (33.0-36.5); MEAN CORPUSCULAR VOLUME 89.1 FL (78-98); MEAN PLATELET VOLUME 8.9 FL (7.4-10.4); MONOCYTES # (AUTO) 0.7 X10'3 (0-0.9); MONOCYTES % (AUTO) 6.6 % (2-12); NEUTROPHILS # (AUTO) 6.4 X10'3 (1.8-7.7); NEUTROPHILS % (AUTO) 57.5 % (42-75); PLATELET COUNT 255 X10'3 (140-440); RED BLOOD COUNT 4.77 X10'6 (4.20-5.60); RED CELL DISTRIBUTION WIDTH 13.6 % (11.5-14.5); WHITE BLOOD COUNT 11.2 X10'3 (4.5-11.0)
[2020-09-14 19:50] LABS: PARTIAL THROMBOPLASTIN TIME 26 SECONDS (22-32)
[2020-09-14 19:51] LABS: ALANINE AMINOTRANSFERASE 24 U/L (12-78); ALBUMIN 4.1 G/DL (3.4-5.0); ALBUMIN/GLOBULIN RATIO 1.1 (1.1-1.5); ALKALINE PHOSPHATASE 80 IU/L (46-116); ANION GAP 11 (8-16); ASPARTATE AMINO TRANSFERASE 13 U/L (10-37); BILIRUBIN,TOTAL 0.4 MG/DL (0.1-1.0); BLOOD UREA NITROGEN 10 MG/DL (7-18); BUN/CREATININE RATIO 11.9 (6.6-38.0); C-REACTIVE PROTEIN 0.67 MG/DL (0.0-0.5); CHLORIDE 102 MMOL/L (99-107); CREATININE 0.84 MG/DL (0.40-0.90); GLUCOSE 94 MG/DL (70-104); SODIUM 140 MMOL/L (135-145); TOTAL CARBON DIOXIDE 27.2 MMOL/L (24-32); eGFR 71 ML/MIN
[2020-09-14] MEDS ORDERED: potassium Cl 20 mEq SR tablet PO PRN (20:10)
--- NOTE | 2020-09-14 21:03 | NUR ---
VASC AT BEDSIDE
[2020-09-14 21:59] VITALS: BP 120/79
[2020-09-15] MEDS ORDERED: COLC0.6T72 PO (18:48)
[2020-09-15] MEDS ORDERED: OXYC-150 PO (18:58)
== END 2020-09-14 22:01 | disposition home or self-care (01) ==
LOC: ER 17:46
DX: M79.672 Pain in left foot (principal); G43.909 Migraine, unspecified, not intractable, without status migrainosus; I10 Essential (primary) hypertension; J44.9 Chronic obstructive pulmonary disease, unspecified; E11.9 Type 2 diabetes mellitus without complications; G89.29 Other chronic pain; F31.9 Bipolar disorder, unspecified; F17.200 Nicotine dependence, unspecified, uncomplicated; Z85.9 Personal history of malignant neoplasm, unspecified; Z90.49 Acquired absence of other specified parts of digestive tract; Z90.710 Acquired absence of both cervix and uterus; Z98.890 Other specified postprocedural states; Z88.1 Allergy status to other antibiotic agents; Z88.8 Allergy status to other drugs, medicaments and biological substances; Z88.0 Allergy status to penicillin; Z79.82 Long term (current) use of aspirin; Z79.899 Other long term (current) drug therapy
CPT/HCPCS: 36415; 73630; 80053; 84145; 85025; 85610; 85651; 85730; 86140; 93971; 99285

== ENCOUNTER 2020-09-15 18:01 | Emergency (ER) | payer MEDICAID ==
[~2020-09-15] VITALS: Ht 149.9 cm; Wt 79.5 kg
[2020-09-15 18:13] VITALS: BP 140/90
[2020-09-15] MEDS ORDERED: oxyCODONE/APAP 10/325mg tablet PO ONE (18:20)
[2020-09-15] MEDS ORDERED: colchicine 0.6mg tablet PO ONE (18:20)
[2020-09-15] MEDS ORDERED: COLC0.6T72 PO (18:48)
[2020-09-15] MEDS ORDERED: OXYC-150 PO (18:58)
== END 2020-09-15 19:01 | disposition home or self-care (01) ==
LOC: ER 18:03
DX: M79.672 Pain in left foot (principal); G43.909 Migraine, unspecified, not intractable, without status migrainosus; I10 Essential (primary) hypertension; J44.9 Chronic obstructive pulmonary disease, unspecified; E11.9 Type 2 diabetes mellitus without complications; G89.29 Other chronic pain; F31.9 Bipolar disorder, unspecified; Z90.49 Acquired absence of other specified parts of digestive tract; Z90.710 Acquired absence of both cervix and uterus; Z98.890 Other specified postprocedural states; Z85.9 Personal history of malignant neoplasm, unspecified; Z88.1 Allergy status to other antibiotic agents; Z88.8 Allergy status to other drugs, medicaments and biological substances; Z88.0 Allergy status to penicillin; Z79.82 Long term (current) use of aspirin; Z79.899 Other long term (current) drug therapy
CPT/HCPCS: 99283

== ENCOUNTER 2023-06-26 08:58 | Inpatient (IN) | payer MEDICAID ==
[~2023-06-26] VITALS: Ht 149.9 cm; Wt 80.1 kg
[~2023-06-26 08:58] MED LIST changes: +CEPH-585 PO; +COLC0.6T72 PO; +HYDR-3965 PO; +METR-159 PO; -MYC15CR TOP; +NYST15CR36 TOP; +OXYC-150 PO; +POTA-192 PO; -POTA10TA19 PO
[2023-06-26 09:58] LABS: BASOPHILS # (AUTO) 0.1 X10'3 (0-0.2); BASOPHILS % (AUTO) 0.7 % (0-1); EOSINOPHILS # (AUTO) 0.2 X10'3 (0-0.9); EOSINOPHILS % (AUTO) 1.6 % (0-6); HEMATOCRIT 45.9 % (35.0-45.0); LYMPHOCYTES # (AUTO) 3.2 X10'3 (1.1-4.8); LYMPHOCYTES % (AUTO) 28.5 % (21-51); MEAN CORPUSCULAR HEMOGLOBIN 30.9 PG (27.0-31.0); MEAN CORPUSCULAR HGB CONC 34.9 g/dL (33.0-36.5); MEAN CORPUSCULAR VOLUME 88.4 FL (78-98); MEAN PLATELET VOLUME 8.5 FL (7.4-10.4); MONOCYTES # (AUTO) 0.5 X10'3 (0-0.9); MONOCYTES % (AUTO) 4.7 % (2-12); NEUTROPHILS # (AUTO) 7.3 X10'3 (1.8-7.7); NEUTROPHILS % (AUTO) 64.5 % (42-75); PLATELET COUNT 325 X10'3 (140-440); RED BLOOD COUNT 5.19 X10'6 (4.20-5.60); RED CELL DISTRIBUTION WIDTH 12.9 % (11.5-14.5); WHITE BLOOD COUNT 11.4 X10'3 (4.5-11.0)
[2023-06-26] MEDS: normal saline 1000ML IV soln IVB ONE ×2 (10:10→12:51)
[2023-06-26 10:12] LABS: ALBUMIN 4.1 G/DL (3.4-5.0); ANION GAP 11 (8-16); BLOOD UREA NITROGEN 12 MG/DL (7-18); BUN/CREATININE RATIO 12.2 (10.0-20.0); CALCIUM 10.6 MG/DL (8.5-10.1); CHLORIDE 97 MMOL/L (99-107); CREATININE 0.98 MG/DL (0.40-0.90); GLUCOSE 156 MG/DL (70-104); LIPASE 38 U/L (16-77); POTASSIUM 3.5 MMOL/L (3.5-5.1); SODIUM 138 MMOL/L (135-145); TOTAL CARBON DIOXIDE 29.7 MMOL/L (24-32); eCRCL 44 ML/MIN; eGFR 59 ML/MIN
[2023-06-26 11:04] LABS: ALANINE AMINOTRANSFERASE 50 U/L (12-78); ALBUMIN/GLOBULIN RATIO 0.9 (1.1-1.5); ALKALINE PHOSPHATASE 83 IU/L (46-116); ASPARTATE AMINO TRANSFERASE 26 U/L (10-37); BILIRUBIN,DIRECT 0.1 MG/DL (0-0.3); BILIRUBIN,TOTAL 0.4 MG/DL (0.1-1.0); TOTAL PROTEIN 8.8 G/DL (6.4-8.2)
[2023-06-26] MEDS: normal saline 1000ml 1,000 ML IV ONE (11:05)
[2023-06-26] MEDS: morphine 4 MG/ML inj SYRINge IV ONE (11:05)
[2023-06-26] MEDS: ondansetron/PF 4mg/2ml inj IV ONE (11:05)
[2023-06-26 11:17] LABS: BILIRUBIN,URINE NEGATIVE (Neg); CLARITY,URINE CLEAR (Clear); COLOR,URINE YELLOW (Yellow); GLUCOSE, URINE NEGATIVE (Neg); KETONES,URINE 15 mg/dl (Neg); LEUKOCYTE ESTERASE ,URINE NEGATIVE (Neg); NITRITES, URINE NEGATIVE (Neg); OCCULT BLOOD,URINE NEGATIVE (Neg); PROTEIN,URINE NEGATIVE (Neg); UROBILINOGEN,URINE 0.2 E.U/dL (0.2-1.0)
[2023-06-26 11:24] LABS: UA COLLECTION TYPE CLN CATCH MIDSTREAM
[2023-06-26] MEDS ORDERED: iohexol 300mg/ml 100ml inj. ONE (11:37)
[2023-06-26] MEDS: CefTRIAXone/D5W-Rocephin 1gm 50 ML IV ONE (12:50)
[2023-06-26] MEDS ORDERED: magnesium 2GM in 50ml NS 50 ML IV PRN (14:00)
[2023-06-26] MEDS ORDERED: magnesium hydroxide 30ml (MOM) UD suspension PO PRN (14:00)
[2023-06-26] MEDS ORDERED: acetaminophen 325mg tablet PO PRN (14:00)
[2023-06-26] MEDS ORDERED: potassium Cl 20 mEq SR tablet PO PRN (14:00)
[2023-06-26] MEDS ORDERED: magnesium 4gm in 100ml NS 100 ML IV PRN (14:00)
[2023-06-26] MEDS ORDERED: mag hydrox/Alum hydrox/simeth 30ml oral suspension PO PRN (14:00)
[2023-06-26] MEDS ORDERED: potassium Cl 40MEQ/1/2NS 520ml 520 ML IV PRN (14:00)
[2023-06-26] MEDS: dextrose 5%-1/2 normal saline 1,000 ML IV SCH (14:25)
[2023-06-26] MEDS: morphine 2 MG/ML inj. syringe IV PRN (14:32)
[2023-06-26] MEDS ORDERED: POTA-366 PO (15:56)
[2023-06-26 16:30] VITALS: BP 144/80; PULSE 88; RESP 17; TEMP 98; O2SAT 97
[2023-06-26] MEDS: ondansetron/PF 4mg/2ml inj IV PRN (16:59)
[2023-06-26] MEDS: piperacillin/tazo 3.375gm/50ml 50 ML IV SCH (18:08)
[2023-06-26 19:02] LABS: HEMOGLOBIN A1C 6.9 % (4.5-6.2)
[2023-06-26] MEDS: K and/or MAG REPLACEMENT MC SCH (20:00)
[2023-06-26] MEDS: docusate sod 100mg capsule PO SCH (21:00)
[2023-06-26] MEDS: HYDROcodone/acetaminophen 5mg/325mg tablet PO PRN (21:21)
[2023-06-26 22:00] VITALS: BP 145/77; PULSE 84; RESP 15; TEMP 97.4; O2SAT 97
[2023-06-27] MEDS: HYDROcodone/acetaminophen 10/325mg tab PO PRN (02:17)
[2023-06-27 06:00] VITALS: BP 112/58; PULSE 88; RESP 15; TEMP 98.1; O2SAT 96
[2023-06-27] MEDS ORDERED: HYDROcodone/acetaminophen 10/325mg tab PO PRN (08:30)
[2023-06-27] MEDS ORDERED: loratadine 10mg tablet PO PRN (08:30)
[2023-06-27] MEDS: enoxaparin 40mg/0.4ml syringe SUBCUT SCH (09:32)
[2023-06-27 10:00] VITALS: BP 129/80; PULSE 61; RESP 16; TEMP 97.8; O2SAT 95
[2023-06-27 10:10] LABS: BASOPHILS % (AUTO) 0.6 % (0-1); EOSINOPHILS # (AUTO) 0.2 X10'3 (0-0.9); EOSINOPHILS % (AUTO) 3.5 % (0-6); HEMATOCRIT 39.2 % (35.0-45.0); HEMOGLOBIN 13.6 g/dl (12.0-16.0); LYMPHOCYTES # (AUTO) 1.5 X10'3 (1.1-4.8); MEAN CORPUSCULAR HEMOGLOBIN 30.8 PG (27.0-31.0); MEAN CORPUSCULAR HGB CONC 34.6 g/dL (33.0-36.5); MEAN PLATELET VOLUME 8.1 FL (7.4-10.4); MONOCYTES # (AUTO) 0.4 X10'3 (0-0.9); MONOCYTES % (AUTO) 7.4 % (2-12); NEUTROPHILS # (AUTO) 3.3 X10'3 (1.8-7.7); NEUTROPHILS % (AUTO) 61.5 % (42-75); PLATELET COUNT 238 X10'3 (140-440); RED CELL DISTRIBUTION WIDTH 12.7 % (11.5-14.5); WHITE BLOOD COUNT 5.4 X10'3 (4.5-11.0)
[2023-06-27 10:19] LABS: ALANINE AMINOTRANSFERASE 54 U/L (12-78); ALBUMIN 3.2 G/DL (3.4-5.0); ALBUMIN/GLOBULIN RATIO 0.9 (1.1-1.5); ALKALINE PHOSPHATASE 54 IU/L (46-116); ANION GAP 9 (8-16); ASPARTATE AMINO TRANSFERASE 29 U/L (10-37); BILIRUBIN,TOTAL 0.4 MG/DL (0.1-1.0); CALCIUM 8.4 MG/DL (8.5-10.1); CHLORIDE 103 MMOL/L (99-107); GLUCOSE 216 MG/DL (70-104); MAGNESIUM 1.6 MG/DL (1.5-2.4); POTASSIUM 3.2 MMOL/L (3.5-5.1); SODIUM 142 MMOL/L (135-145); TOTAL CARBON DIOXIDE 30.1 MMOL/L (24-32); TOTAL PROTEIN 6.8 G/DL (6.4-8.2); eCRCL 48 ML/MIN; eGFR 65 ML/MIN
[2023-06-27] MEDS: potassium Cl 20 mEq SR tablet PO PRN (10:25)
[2023-06-27 10:26] LABS: BLOOD UREA NITROGEN 5 MG/DL (7-18); BUN/CREATININE RATIO 5.6 (10.0-20.0)
[2023-06-27] MEDS: baclofen 10mg tablet PO SCH (13:12)
[2023-06-27 18:00] VITALS: BP 149/97; PULSE 76; RESP 16; TEMP 97.2; O2SAT 95
[2023-06-27] MEDS: albuterol 2.5 MG/3 ML nebule NEB SCH (19:11)
[2023-06-27 19:15] VITALS: PULSE 81; RESP 16; O2SAT 97
[2023-06-27 19:22] VITALS: PULSE 84; RESP 16
[2023-06-27] MEDS: nystatin 15 GM powder TP SCH (19:37)
[2023-06-27] MEDS: metFORMIN 500mg tablet PO SCH (19:37)
[2023-06-27] MEDS: divalproex 250mg tablet, delayed-release PO SCH (19:47)
[2023-06-27] MEDS: atorvastatin 20mg tablet PO SCH (20:31)
[2023-06-27 22:00] VITALS: BP 140/88; PULSE 73; RESP 18; TEMP 98; O2SAT 94
[2023-06-28] VITALS (8 sets, daily range): BP systolic 126–147; BP diastolic 72–92; PULSE 67–86; RESP 14–18; TEMP 97.8–98.3; O2SAT 67–99
[2023-06-28 00:56] LABS: URINE AMPHETAMINE SCREEN NEGATIVE (Neg); URINE BARBITUATE SCREEN NEGATIVE (Neg); URINE BENZODIAZEPINES SCREEN NEGATIVE (Neg); URINE CANNABINOID SCREEN NEGATIVE (Neg); URINE COCAINE SCREEN NEGATIVE (Neg); URINE METHADONE SCREEN NEGATIVE (Neg); URINE OPIATE SCREEN POSITIVE (Neg); URINE PHENCYCLIDINE SCREEN NEGATIVE (Neg)
[2023-06-28 07:08] LABS: BASOPHILS % (AUTO) 0.5 % (0-1); EOSINOPHILS # (AUTO) 0.3 X10'3 (0-0.9); HEMATOCRIT 38.5 % (35.0-45.0); HEMOGLOBIN 13.3 g/dl (12.0-16.0); LYMPHOCYTES # (AUTO) 2.3 X10'3 (1.1-4.8); LYMPHOCYTES % (AUTO) 41.3 % (21-51); MEAN CORPUSCULAR HEMOGLOBIN 30.7 PG (27.0-31.0); MEAN CORPUSCULAR HGB CONC 34.4 g/dL (33.0-36.5); MEAN CORPUSCULAR VOLUME 89.1 FL (78-98); MEAN PLATELET VOLUME 8.3 FL (7.4-10.4); MONOCYTES # (AUTO) 0.4 X10'3 (0-0.9); MONOCYTES % (AUTO) 7.2 % (2-12); NEUTROPHILS # (AUTO) 2.6 X10'3 (1.8-7.7); PLATELET COUNT 224 X10'3 (140-440); RED BLOOD COUNT 4.33 X10'6 (4.20-5.60); RED CELL DISTRIBUTION WIDTH 12.6 % (11.5-14.5); WHITE BLOOD COUNT 5.6 X10'3 (4.5-11.0)
[2023-06-28 07:24] LABS: ALANINE AMINOTRANSFERASE 50 U/L (12-78); ALBUMIN 3.1 G/DL (3.4-5.0); ALKALINE PHOSPHATASE 51 IU/L (46-116); ANION GAP 7 (8-16); ASPARTATE AMINO TRANSFERASE 23 U/L (10-37); BILIRUBIN,TOTAL 0.3 MG/DL (0.1-1.0); BLOOD UREA NITROGEN 3 MG/DL (7-18); BUN/CREATININE RATIO 3.6 (10.0-20.0); CALCIUM 8.6 MG/DL (8.5-10.1); CHLORIDE 106 MMOL/L (99-107); CREATININE 0.83 MG/DL (0.40-0.90); GLUCOSE 147 MG/DL (70-104); MAGNESIUM 1.5 MG/DL (1.5-2.4); POTASSIUM 3.8 MMOL/L (3.5-5.1); SODIUM 143 MMOL/L (135-145); TOTAL CARBON DIOXIDE 29.6 MMOL/L (24-32); TOTAL PROTEIN 6.2 G/DL (6.4-8.2); eCRCL 52 ML/MIN; eGFR 71 ML/MIN
[2023-06-28 07:40] LABS: C DIFF ANTIGEN NEGATIVE (NEGATIVE); C DIFF SPECIMEN=DIARRHEA? ACCEPTABLE; C DIFFICILE TOXINS A&B NEGATIVE (Neg)
[2023-06-28] MEDS ORDERED: non-formulary drug (Potassium Chloride 1 TAB) PO SCH (08:00)
[2023-06-28] MEDS ORDERED: albuterol 2.5 MG/3 ML nebule NEB PRN (08:20)
[2023-06-28] MEDS ORDERED: CIPR-202 PO (08:37)
[2023-06-28] MEDS ORDERED: LACT1TAB6 PO (08:37)
[2023-06-28] MEDS: potassium chloride 10mEq ER tablet PO SCH (08:50)
[2023-06-28] MEDS: HYDROchlorothiazide 25mg tablet PO SCH (08:51)
[2023-06-28] MEDS: aspirin 81mg, enteric-coated 1 TAB TABLET.DR PO SCH (08:51)
[2023-06-28] MEDS: pantoprazole 40mg Tablet.DR PO SCH (08:58)
[2023-06-28] MEDS: buPROPion SR 150mg tablet PO SCH (08:59)
[2023-06-28] MEDS: sodium chloride 0.45% 1,000 ML IV SCH (09:01)
[2023-06-28] MEDS ORDERED: docusate sod 100mg capsule PO PRN (09:05)
[2023-06-29] VITALS (7 sets, daily range): BP systolic 127–140; BP diastolic 60–79; PULSE 65–70; RESP 15–18; TEMP 97.5–97.7; O2SAT 94–96
[2023-06-29 07:14] LABS: BASOPHILS % (AUTO) 0.4 % (0-1); EOSINOPHILS # (AUTO) 0.3 X10'3 (0-0.9); EOSINOPHILS % (AUTO) 4.1 % (0-6); HEMOGLOBIN 13.3 g/dl (12.0-16.0); LYMPHOCYTES # (AUTO) 3.4 X10'3 (1.1-4.8); LYMPHOCYTES % (AUTO) 44.3 % (21-51); MEAN CORPUSCULAR HEMOGLOBIN 30.5 PG (27.0-31.0); MEAN CORPUSCULAR VOLUME 89.7 FL (78-98); MEAN PLATELET VOLUME 8.6 FL (7.4-10.4); MONOCYTES # (AUTO) 0.5 X10'3 (0-0.9); MONOCYTES % (AUTO) 6.3 % (2-12); NEUTROPHILS # (AUTO) 3.4 X10'3 (1.8-7.7); NEUTROPHILS % (AUTO) 44.9 % (42-75); PLATELET COUNT 231 X10'3 (140-440); RED BLOOD COUNT 4.35 X10'6 (4.20-5.60); RED CELL DISTRIBUTION WIDTH 12.9 % (11.5-14.5); WHITE BLOOD COUNT 7.6 X10'3 (4.5-11.0)
[2023-06-29 07:50] LABS: ALANINE AMINOTRANSFERASE 18 U/L (12-78); ALBUMIN 3.2 G/DL (3.4-5.0); ALBUMIN/GLOBULIN RATIO 0.9 (1.1-1.5); ALKALINE PHOSPHATASE 54 IU/L (46-116); ANION GAP 10 (8-16); ASPARTATE AMINO TRANSFERASE 21 U/L (10-37); BILIRUBIN,TOTAL 0.4 MG/DL (0.1-1.0); BLOOD UREA NITROGEN 10 MG/DL (7-18); BUN/CREATININE RATIO 11.1 (10.0-20.0); CALCIUM 8.7 MG/DL (8.5-10.1); CHLORIDE 101 MMOL/L (99-107); GLUCOSE 125 MG/DL (70-104); MAGNESIUM 1.4 MG/DL (1.5-2.4); POTASSIUM 3.6 MMOL/L (3.5-5.1); SODIUM 138 MMOL/L (135-145); TOTAL CARBON DIOXIDE 27.4 MMOL/L (24-32); TOTAL PROTEIN 6.8 G/DL (6.4-8.2); eCRCL 48 ML/MIN; eGFR 65 ML/MIN
[2023-06-29] MEDS: magnesium Cl slow-release 64mg tablet PO PRN ×2 (08:40→17:16)
[2023-06-29] MEDS: diazepam 2mg tablet PO PRN (11:55)
[2023-06-29] MEDS: diatr meglu/diatrizoate 30ml oral sol.-(3 dose) bottle PO SCH (12:00)
[2023-06-29] MEDS ORDERED: potassium Cl 40MEQ/1/2NS 520ml 520 ML IV PRN (17:10)
[2023-06-29] MEDS ORDERED: magnesium 4gm in 100ml NS 100 ML IV PRN (17:10)
[2023-06-29] MEDS ORDERED: magnesium 2GM in 50ml NS 50 ML IV PRN (17:10)
[2023-06-29] MEDS ORDERED: potassium Cl 20 mEq SR tablet PO PRN ×2 (17:10)
[2023-06-29] MEDS ORDERED: iohexol 300mg/ml 100ml inj. ONE (17:41)
[2023-06-30 06:00] VITALS: BP 109/64; PULSE 60; RESP 18; TEMP 98.1; O2SAT 96
[2023-06-30 07:03] LABS: BASOPHILS % (AUTO) 0.5 % (0-1); EOSINOPHILS # (AUTO) 0.3 X10'3 (0-0.9); EOSINOPHILS % (AUTO) 4.6 % (0-6); HEMATOCRIT 38.4 % (35.0-45.0); HEMOGLOBIN 13.5 g/dl (12.0-16.0); LYMPHOCYTES % (AUTO) 44.4 % (21-51); MEAN CORPUSCULAR HEMOGLOBIN 31.1 PG (27.0-31.0); MEAN CORPUSCULAR HGB CONC 35.1 g/dL (33.0-36.5); MEAN CORPUSCULAR VOLUME 88.7 FL (78-98); MEAN PLATELET VOLUME 8.3 FL (7.4-10.4); MONOCYTES # (AUTO) 0.4 X10'3 (0-0.9); MONOCYTES % (AUTO) 6.6 % (2-12); NEUTROPHILS % (AUTO) 43.9 % (42-75); PLATELET COUNT 236 X10'3 (140-440); RED BLOOD COUNT 4.33 X10'6 (4.20-5.60); RED CELL DISTRIBUTION WIDTH 12.9 % (11.5-14.5); WHITE BLOOD COUNT 6.8 X10'3 (4.5-11.0)
[2023-06-30 07:06] VITALS: RESP 18; O2SAT 96
[2023-06-30 07:17] LABS: ALANINE AMINOTRANSFERASE 45 U/L (12-78); ALBUMIN 3.1 G/DL (3.4-5.0); ALBUMIN/GLOBULIN RATIO 0.9 (1.1-1.5); ALKALINE PHOSPHATASE 49 IU/L (46-116); ANION GAP 9 (8-16); ASPARTATE AMINO TRANSFERASE 24 U/L (10-37); BILIRUBIN,TOTAL 0.3 MG/DL (0.1-1.0); BLOOD UREA NITROGEN 10 MG/DL (7-18); CHLORIDE 102 MMOL/L (99-107); CREATININE 0.77 MG/DL (0.40-0.90); GLUCOSE 127 MG/DL (70-104); MAGNESIUM 1.7 MG/DL (1.5-2.4); POTASSIUM 3.8 MMOL/L (3.5-5.1); SODIUM 140 MMOL/L (135-145); TOTAL CARBON DIOXIDE 29.3 MMOL/L (24-32); TOTAL PROTEIN 6.6 G/DL (6.4-8.2); eCRCL 56 ML/MIN; eGFR 78 ML/MIN
[2023-06-30 07:59] VITALS: PULSE 72; RESP 16; O2SAT 95
[2023-06-30 08:45] VITALS: RESP 16; O2SAT 96
[2023-06-30 10:00] VITALS: BP 120/74; PULSE 62; RESP 16; TEMP 97.2; O2SAT 96
[2023-06-30 14:58] VITALS: RESP 16
== END 2023-06-30 16:15 | disposition home or self-care (01) | DRG 249 ==
LOC: ER 08:59 → ED HOLD 14:06 → ORTHO 4S 16:28
PROVIDERS: ADMIT Internal Medicine; ATTEND Internal Medicine
PROC: BW211ZZ Computerized Tomography (CT Scan) of Abdomen and Pelvis using Low Osmolar Contrast (ICD-10-PCS; principal; 2023-06-26)
PROC: BW211ZZ Computerized Tomography (CT Scan) of Abdomen and Pelvis using Low Osmolar Contrast (ICD-10-PCS; 2023-06-29)
DX: K52.9 Noninfective gastroenteritis and colitis, unspecified (principal); E11.9 Type 2 diabetes mellitus without complications; E66.01 Morbid (severe) obesity due to excess calories; E78.5 Hyperlipidemia, unspecified; F31.9 Bipolar disorder, unspecified; I10 Essential (primary) hypertension; F17.210 Nicotine dependence, cigarettes, uncomplicated; M79.7 Fibromyalgia; G43.909 Migraine, unspecified, not intractable, without status migrainosus; K57.90 Diverticulosis of intestine, part unspecified, without perforation or abscess without bleeding; M54.9 Dorsalgia, unspecified; J44.9 Chronic obstructive pulmonary disease, unspecified; G89.29 Other chronic pain; Z90.710 Acquired absence of both cervix and uterus; Z78.9 Other specified health status; Z79.84 Long term (current) use of oral hypoglycemic drugs; Z79.899 Other long term (current) drug therapy; Z80.49 Family history of malignant neoplasm of other genital organs; Z82.3 Family history of stroke; Z82.49 Family history of ischemic heart disease and other diseases of the circulatory system; Z83.3 Family history of diabetes mellitus; Z90.49 Acquired absence of other specified parts of digestive tract; Z88.0 Allergy status to penicillin; Z88.6 Allergy status to analgesic agent; Z68.35 Body mass index [BMI] 35.0-35.9, adult; Z88.8 Allergy status to other drugs, medicaments and biological substances; Z88.1 Allergy status to other antibiotic agents; Z88.5 Allergy status to narcotic agent
CPT/HCPCS: 36415; 74018; 74177; 80048; 80053; 80076; 80305; 81003; 82948; 83036; 83605; 83690; 83735; 84145; 84484; 85025; 86140; 87045; 87046; 87081; 87324; 87449; 93005; 94640; 94760; 99285; G0378; J0696; J1650; J2270; J2405; J2543; J3490; J7030; J7070; Q9963; Q9967

== ENCOUNTER 2023-07-16 02:37 | Emergency (ER) | payer MEDICAID ==
[~2023-07-16] VITALS: Ht 149.9 cm; Wt 81.8 kg
[~2023-07-16 02:37] MED LIST changes: -CEPH-585 PO; +CIPR-202 PO; -COLC0.6T72 PO; -HYDR-3965 PO; -HYDR-4383 PO; -LACT1CAP26 PO; +LACT1TAB6 PO; -METR-159 PO; -NYST15CR36 TOP; -ONDA4TAB6 PO; -OXYC-150 PO; +POTA-366 PO
[2023-07-16 07:07] LABS: BASOPHILS # (AUTO) 0.1 X10'3 (0-0.2); EOSINOPHILS # (AUTO) 0.1 X10'3 (0-0.9); MEAN CORPUSCULAR HEMOGLOBIN 30.7 PG (27.0-31.0)
[2023-07-16 07:08] LABS: BASOPHILS % (AUTO) 0.9 % (0-1); HEMATOCRIT 43.4 % (35.0-45.0); HEMOGLOBIN 15.2 g/dl (12.0-16.0); LYMPHOCYTES # (AUTO) 3.1 X10'3 (1.1-4.8); LYMPHOCYTES % (AUTO) 34.4 % (21-51); MEAN CORPUSCULAR HGB CONC 34.9 g/dL (33.0-36.5); MEAN CORPUSCULAR VOLUME 87.8 FL (78-98); MEAN PLATELET VOLUME 8.5 FL (7.4-10.4); MONOCYTES # (AUTO) 0.4 X10'3 (0-0.9); MONOCYTES % (AUTO) 4.7 % (2-12); NEUTROPHILS # (AUTO) 5.3 X10'3 (1.8-7.7); PLATELET COUNT 299 X10'3 (140-440); RED BLOOD COUNT 4.94 X10'6 (4.20-5.60)
[2023-07-16 07:20] LABS: BILIRUBIN,URINE NEGATIVE (Neg); CLARITY,URINE CLEAR (Clear); COLOR,URINE YELLOW (Yellow); GLUCOSE, URINE NEGATIVE (Neg); KETONES,URINE NEGATIVE (Neg); LEUKOCYTE ESTERASE ,URINE NEGATIVE (Neg); NITRITES, URINE NEGATIVE (Neg); OCCULT BLOOD,URINE NEGATIVE (Neg); PROTEIN,URINE NEGATIVE (Neg); UROBILINOGEN,URINE 0.2 E.U/dL (0.2-1.0)
[2023-07-16 07:21] LABS: ALANINE AMINOTRANSFERASE 27 U/L (12-78); ALKALINE PHOSPHATASE 56 IU/L (46-116); ANION GAP 9 (8-16); ASPARTATE AMINO TRANSFERASE 13 U/L (10-37); BILIRUBIN,TOTAL 0.6 MG/DL (0.1-1.0); BLOOD UREA NITROGEN 9 MG/DL (7-18); BUN/CREATININE RATIO 11.8 (10.0-20.0); CALCIUM 9.5 MG/DL (8.5-10.1); CHLORIDE 97 MMOL/L (99-107); CREATININE 0.76 MG/DL (0.40-0.90); GLUCOSE 132 MG/DL (70-104); LIPASE 22 U/L (16-77); POTASSIUM 3.4 MMOL/L (3.5-5.1); SODIUM 135 MMOL/L (135-145); TOTAL CARBON DIOXIDE 29.3 MMOL/L (24-32); URINE HCG NEGATIVE (NEG); eCRCL 56 ML/MIN; eGFR 79 ML/MIN
[2023-07-16 07:34] LABS: UA COLLECTION TYPE NON-SPECIFIED
[2023-07-16] MEDS ORDERED: iohexol 300mg/ml 100ml inj. ONE (08:07)
[2023-07-16] MEDS: normal saline 1000ML IV soln IVB ONE (08:27)
[2023-07-16] MEDS: ondansetron/PF 4mg/2ml inj IV ONE (08:28)
[2023-07-16] MEDS: diphenhydrAMINE 50 mg/ml inj IV ONE ×2 (09:16→09:18)
[2023-07-16] MEDS: HYDROmorphone inj. 0.5 MG/0.5 ML DISP.SYRIN IV ONE (09:16)
[2023-07-16] MEDS: HYDROmorphone 1 mg/ml syringe IV ONE (11:36)
[2023-07-16] MEDS: morphine 4 MG/ML inj SYRINge IV ONE ×2 (16:15→18:38)
[2023-07-16 17:11] LABS: URINE AMPHETAMINE SCREEN NEGATIVE (Neg); URINE BARBITUATE SCREEN NEGATIVE (Neg); URINE BENZODIAZEPINES SCREEN NEGATIVE (Neg); URINE CANNABINOID SCREEN NEGATIVE (Neg); URINE COCAINE SCREEN NEGATIVE (Neg); URINE METHADONE SCREEN NEGATIVE (Neg); URINE OPIATE SCREEN POSITIVE (Neg); URINE PHENCYCLIDINE SCREEN NEGATIVE (Neg)
[2023-07-16] MEDS ORDERED: CIPR-202 PO (18:24)
[2023-07-16] MEDS ORDERED: POLY119P2 PO (18:25)
[2023-07-16 19:00] VITALS: BP 142/88; PULSE 95; RESP 18; TEMP 98.2; O2SAT 95
== END 2023-07-16 19:08 | disposition home or self-care (01) ==
LOC: ER 02:39
DX: R10.9 Unspecified abdominal pain (principal); Z88.0 Allergy status to penicillin; Z88.1 Allergy status to other antibiotic agents; Z88.2 Allergy status to sulfonamides; Z88.5 Allergy status to narcotic agent; Z88.6 Allergy status to analgesic agent; Z88.8 Allergy status to other drugs, medicaments and biological substances; J44.9 Chronic obstructive pulmonary disease, unspecified; I10 Essential (primary) hypertension
CPT/HCPCS: 36415; 74177; 80053; 80305; 81003; 81025; 83690; 85025; 96365; 96375; 96376; 99285; J1170; J1200; J2270; J2405; J3490; J7030; Q9967; 96374

== ENCOUNTER 2023-10-28 19:55 | Emergency (ER) | payer MEDICAID ==
[~2023-10-28] VITALS: Ht 149.9 cm; Wt 80.0 kg
[~2023-10-28 19:55] MED LIST changes: -BUPR-317 PO; +BUPR-561 PO; -CIPR-202 PO; +POLY119P2 PO
[2023-10-28 20:01] VITALS: TEMP 98
[2023-10-28] MEDS: HYDROcodone/acetaminophen 5mg/325mg tablet PO ONE (21:36)
[2023-10-28] MEDS: HYDROmorphone 1 mg/ml syringe IM ONE (23:36)
[2023-10-28] MEDS ORDERED: HYDR-3972 PO (23:54)
[2023-10-29] MEDS ORDERED: HYDR-3965 PO (00:01)
[2023-10-29] MEDS: LIDOcaine 1% 30ml preserv. free vial IJ ONE (00:45)
[2023-10-29 02:08] VITALS: BP 143/79; PULSE 86; RESP 18; O2SAT 98
== END 2023-10-29 02:12 | disposition home or self-care (01) ==
LOC: ER 19:55
DX: S52.501A Unspecified fracture of the lower end of right radius, initial encounter for closed fracture (principal); S52.611A Displaced fracture of right ulna styloid process, initial encounter for closed fracture; G43.909 Migraine, unspecified, not intractable, without status migrainosus; I10 Essential (primary) hypertension; J44.9 Chronic obstructive pulmonary disease, unspecified; E11.9 Type 2 diabetes mellitus without complications; Z88.1 Allergy status to other antibiotic agents; Z88.5 Allergy status to narcotic agent; Z88.6 Allergy status to analgesic agent; Z79.82 Long term (current) use of aspirin; Z79.899 Other long term (current) drug therapy; Z79.84 Long term (current) use of oral hypoglycemic drugs; Z90.49 Acquired absence of other specified parts of digestive tract; Z90.710 Acquired absence of both cervix and uterus; W19.XXXA Unspecified fall, initial encounter; Y93.89 Activity, other specified; Y92.89 Other specified places as the place of occurrence of the external cause; Y99.8 Other external cause status
CPT/HCPCS: 25605; 71046; 73030; 73110; 96372; 99284; J1170; J3490